=== PATIENT | male | born 2000 | race Hispanic/Latino ===

== ENCOUNTER 2021-07-03 21:41 | Emergency (ER) | payer SELFPAY ==
--- NOTE | 2021-07-04 00:46 | ER ---
Nurse's Notes [facility] Name: Christos Randolph Age: 21 yrs Sex: Male : 2000 Arrival Date: 07/03/2021 Time: 21:44 Bed 10 Private MD: Diagnosis: Dyspnea Presentation: 07/03 22:08 Chief complaint: Patient states: trouble breathing and covid exposure, denies fever, em got his 1st covid vaccine a few days ago. Coronavirus screen: Vaccine status: Patient reports receiving the 1st dose of the Covid vaccine. Ebola Screen: Patient negative for fever greater than or equal to 101.5 degrees Fahrenheit, and additional compatible Ebola Virus Disease symptoms Patient denies exposure to infectious person. Patient denies travel to an Ebola-affected area in the 21 days before illness onset. No symptoms or risks identified at this time. Initial Sepsis Screen: Does the patient meet any 2 criteria? No. Patient's initial sepsis screen is negative. Does the patient have a suspected source of infection? No. Patient's initial sepsis screen is negative. Risk Assessment: Do you want to hurt yourself or someone else? Patient reports no desire to harm self or others. Onset of symptoms was July 03, 2021. 22:08 Method Of Arrival: Ambulatory em 22:08 Acuity: HARRIS 4 em Historical: - Allergies: 22:09 No Known Allergies; em - PMHx: 22:09 None; em - PSHx: 22:09 None; em - Immunization history:: Client reports receiving the 1st dose of the Covid vaccine. - Social history:: Smoking status: Patient denies any tobacco usage or history of. Screenin:08 Abuse screen: Denies threats or abuse. Nutritional screening: No deficits noted. em Tuberculosis screening: No symptoms or risk factors identified. Fall Risk None identified. Assessment: 22:08 General: Appears in no apparent distress. comfortable, Behavior is calm, cooperative, em appropriate for age, Denies fever. Pain: Denies pain. Neuro: Level of Consciousness is awake, alert, obeys commands, Oriented to person, place, time, situation. Cardiovascular: Capillary refill < 3 seconds Patient's skin is warm and dry. Respiratory: Airway is patent Respiratory effort is even, unlabored, Respiratory pattern is regular, symmetrical. Derm: Skin is intact, is healthy with good turgor, Skin is pink, warm \T\ dry. Musculoskeletal: Capillary refill < 3 seconds, Range of motion: intact in all extremities. Vital Signs: 22:08 BP 129 / 89; Pulse 80; Resp 18; Temp 98.1; Pulse Ox 100% ; Weight 90.72 kg; Height 6 em ft. 1 in. (185.42 cm); 22:08 Body Mass Index 26.39 (90.72 kg, 185.42 cm) em ED Course: 21:44 Patient arrived in ED. cf2 22:08 Patient has correct armband on for positive identification. em 22:09 Triage completed. em 22: Arm band placed on. em 22:10 Sabina Strickland, ESTELITA is Primary Nurse. 22:11 Quinn Morrison PA is PHCP. [facility] 22:11 Jae Melendez MD is Attending Physician. [facility] 07/04 00:55 No provider procedures requiring assistance completed. Patient did not have IV access em during this emergency room visit. Administered Medications: No medications were administered Outcome: 00:45 Discharge ordered by MD. [facility] 00:55 Discharged to home ambulatory. em 00:55 Condition: stable 00:55 Discharge instructions given to patient, Instructed on discharge instructions, follow up and referral plans. Demonstrated understanding of instructions, follow-up care. 00:56 Patient left the ED. em Signatures: Quinn Morrison PA PA Tod Lynne RN RN Sabina Strickland, ESTELITA RN Aaliyah Ly cf2
--- NOTE | 2021-07-04 00:46 | EDPHYS ---
Physician Documentation [facility] Name: Christos Randolph Age: 21 yrs Sex: Male : 2000 Arrival Date: 07/03/2021 Time: 21:44 Bed 10 Private MD: ED Physician Jae Melendez HPI: 07/03 22:34 This 21 yrs old Male presents to ER via Ambulatory with complaints of covid jmm exposure. 22:34 The patient has shortness of breath at rest. Onset: The symptoms/episode began/occurred jmm gradually, 3 day(s) ago. Duration: The symptoms are intermittent. The patient's shortness of breath is aggravated by nothing, is alleviated by nothing. States he was exposed to someone with coronavirus. Historical: - Allergies: 22:09 No Known Allergies; em - PMHx: 22:09 None; em - PSHx: 22:09 None; em - Immunization history:: Client reports receiving the 1st dose of the Covid vaccine. - Social history:: Smoking status: Patient denies any tobacco usage or history of. ROS: 22:34 Constitutional: Negative for fever, chills, and weight loss, Cardiovascular: Negative jmm for chest pain, palpitations, and edema. 22:34 Respiratory: Positive for shortness of breath. 22:34 All other systems are negative. Exam: 22:34 Constitutional: This is a well developed, well nourished patient who is awake, alert, jmm and in no acute distress. Head/Face: atraumatic. Eyes: EOMI, no conjunctival erythema appreciated ENT: Moist Mucus Membranes Neck: Trachea midline, Supple Chest/axilla: Normal chest wall appearance and motion. Cardiovascular: Regular rate and rhythm. No edema appreciated Respiratory: Normal respirations, no respiratory distress appreciated Abdomen/GI: Non distended, soft Back: Normal ROM Skin: General appearance color normal MS/ Extremity: Moves all extremities, no obvious deformities appreciated, no edema noted to the lower extremities Neuro: Awake and alert, normal gait Psych: Behavior is normal, Mood is normal, Patient is cooperative and pleasant Vital Signs: 22:08 BP 129 / 89; Pulse 80; Resp 18; Temp 98.1; Pulse Ox 100% ; Weight 90.72 kg; Height 6 em ft. 1 in. (185.42 cm); 22:08 Body Mass Index 26.39 (90.72 kg, 185.42 cm) em MDM: 22:34 Patient medically screened. [facility] 07/04 00:44 Data reviewed: vital signs, nurses notes. Counseling: I had a detailed discussion with stefani the patient and/or guardian regarding: the historical points, exam findings, and any diagnostic results supporting the discharge/admit diagnosis, lab results, the need for outpatient follow up, to return to the emergency department if symptoms worsen or persist or if there are any questions or concerns that arise at home. ED course: Patient is alert and nontoxic in appearance in the ER. I discussed all labs and imaging studies with the patient. Patient will follow up with their primary care provider. Patient understood and agrees with plan of care.. 07/04 00:40 Order name: SARS-COV-2 RT PCR; Complete Time: 00:42 EDMS Administered Medications: No medications were administered Disposition: 02:09 Co-signature as Attending Physician, Jae Melendez MD I agree with the assessment and rn plan of care. Attestation: The patient's history, exam findings, diagnostics, and a summary of any interventions or procedures was reviewed in detail with Quinn WALTER. Disposition Summary: 07/04/21 00:45 Discharge Ordered Location: Home [facility] Condition: Stable [facility] Diagnosis - Dyspnea [facility] Followup: [facility] - With: Private Physician - When: 2 - 3 days - Reason: Recheck today's complaints, Continuance of care, Re-evaluation by your physician Discharge Instructions: - Discharge Summary Sheet jm - Shortness of Breath, Adult [facility] Forms: - Medication Reconciliation Form [facility] - Thank You Letter [facility] - Antibiotic Education m - Prescription Opioid Use [facility] - Work release form em Signatures: Dispatcher [employer] EDQuinn Cortez PA PA jmm Munoz, Edgar, ESTELITA RN Jae Eli MD MD rn telehealth: (The following items were deleted from the chart) 07/03 23:25 22:23 CORONAVIRUS+ ordered. EDTX EDMS
[2021-07-04 01:08] VITALS: BP 129/89; TEMP 98.1; O2SAT 100
== END 2021-07-04 00:56 | disposition home or self-care (01) ==
LOC: ER 21:41
DX: R06.00 Dyspnea, unspecified (principal); Z20.822 Contact with and (suspected) exposure to COVID-19
CPT/HCPCS: 99281; U0003

== ENCOUNTER 2021-12-04 23:17 | Emergency (ER) | payer SELFPAY ==
[2021-12-05 01:48] LABS: Urine Blood Negative (Negative); Urine Glucose Negative (Negative); Urine Protein Negative (Negative); Urine Specific Gravity 1.025 (1.005-1.030)
[2021-12-05 01:54] LABS: Protime INR 1.01
[2021-12-05 02:02] LABS: Absolute Lymphocytes (CBC) 1.3 K/uL (0.7-4.9); Hematocrit 41.9 % (39.6-49.0); MPV 8.9 fL (7.6-11.3); RBC Red Blood Cell Count 4.78 M/uL (4.33-5.43)
[2021-12-05] MEDS ORDERED: LORAZEPAM 1 MG TABLET ONE (02:05)
[2021-12-05 02:08] LABS: Barbiturates NEGATIVE (NEGATIVE); Benzodiazepines NEGATIVE (NEGATIVE); Cocaine NEGATIVE (NEGATIVE); METHAMPHETAM NEGATIVE (NEGATIVE); Methadone NEGATIVE (NEGATIVE); Opiates NEGATIVE (NEGATIVE); Phencyclidine NEGATIVE (NEGATIVE); THC Cannibis NEGATIVE (NEGATIVE)
[2021-12-05 02:11] LABS: ALT/SGPT 57 U/L (12-78); AST/SGOT 56 U/L (15-37); Albumin 3.8 g/dL (3.4-5.0); Alkaline Phosphatase 150 U/L (45-117); BUN Blood Urea Nitrogen 12 mg/dL (7-18); Bicarbonate 27 mmol/L (21-32); Bilirubin Direct 0.1 mg/dL (0-0.2); Bilirubin Total 0.3 mg/dL (0.2-1.0); Glucose Level 85 mg/dL (74-106); Potassium 4.1 mmol/L (3.5-5.1); Protein, Total 7.9 g/dL (6.4-8.2); Sodium Level 139 mmol/L (136-145)
--- NOTE | 2021-12-05 08:43 | EDPHYS ---
Physician Documentation [facility] Name: Christos Randolph Age: 21 yrs Sex: Male : 2000 Arrival Date: 12/04/2021 Time: 23:20 Bed 19 Private MD: ED Physician Nikko Garcia HPI: 12/04 23:50 This 21 yrs old Male presents to ER via Ambulatory with complaints of Suicidal cp Ideation - [employer] Brought PT in.. 23:50 The patient presents to the emergency department with depression, over a relationship. cp Past psychiatric history: Prior diagnosis: depression, Psychiatric medications include: Lexapro, the patient does not have a previous inpatient psychiatric history. Associated signs and symptoms: Pertinent positives; self cutting, Pertinent negatives: delusions, fever, hallucinations, homicidal ideation, suicide ideation. Historical: - Allergies: 23:38 No Known Allergies; sf1 - Home Meds: 23:38 None [Active]; sf1 - PMHx: 23:38 adhd; sf1 - PSHx: 23:38 None; sf1 - Immunization history:: Flu vaccine is not up to date. - Social history:: Smoking status: Patient denies any tobacco usage or history of. Patient/guardian denies using alcohol. ROS: 23:55 Constitutional: Negative for chills, fever, poor PO intake. cp 23:55 Eyes: Negative for injury, pain, redness, and discharge. cp 23:55 ENT: Negative for ear pain, sore throat, difficulty swallowing, difficulty handling secretions. 23:55 Cardiovascular: Negative for chest pain. 23:55 Respiratory: Negative for cough, shortness of breath, wheezing. 23:55 Abdomen/GI: Negative for abdominal pain, nausea, vomiting, and diarrhea. 23:55 Neuro: Negative for altered mental status, headache, weakness. 23:55 Psych: Positive for depression, Negative for auditory hallucinations, visual hallucinations, homicidal ideation, suicide gesture, suicidal ideation. 23:55 All other systems are negative. Exam: 23:58 Constitutional: The patient appears in no acute distress, alert, awake, non-toxic, well cp developed, well nourished. 23:58 Head/Face: Normocephalic, atraumatic. cp 23:58 Eyes: Periorbital structures: appear normal, Pupils: equal, round, and reactive to light and accomodation, Extraocular movements: intact throughout. 23:58 Chest/axilla: Inspection: normal. 23:58 Cardiovascular: Rate: normal, Rhythm: regular. 23:58 Respiratory: the patient does not display signs of respiratory distress, Respirations: normal, no use of accessory muscles, no retractions, labored breathing, is not present, Breath sounds: are clear throughout, no decreased breath sounds, no stridor, no wheezing. 23:58 Abdomen/GI: Exam negative for discomfort, distension, guarding, Inspection: abdomen appears normal. 23:58 Neuro: Orientation: to person, place \\T\\ time. Mentation: is normal, Motor: moves all fours, strength is normal, Sensation: is normal, Gait: is steady, at a normal pace, without difficulty. 12/05 02:01 ECG was reviewed by the Attending Physician. Vital Signs: 12/04 23:30 BP 152 / 94; Pulse 102; Resp 20; Temp 98.8; Pulse Ox 98% ; Weight 99.9 kg; Height 6 ft. sf1 0 in. (182.88 cm); Pain 0/10; 12/05 00:21 BP 128 / 99; Pulse 72; Resp 16; Temp 98.5; Pulse Ox 100% on R/A; Pain 0/10; jeffry 02:44 BP 128 / 88; Pulse 70; Resp 16; Pulse Ox 100% on R/A; jeffry 04:23 BP 115 / 82; Pulse 68; Resp 12; Pulse Ox 99% on R/A; Pain 0/10; jeffry 07:10 BP 120 / 76; Pulse 70; Resp 18; Temp 98.0(O); Pulse Ox 100% ; jh6 12/04 23:30 Body Mass Index 29.87 (99.90 kg, 182.88 cm) sf1 MDM: 12/04 23:43 Patient medically screened. 12/05 03:07 Data reviewed: vital signs, nurses notes, lab test result(s). 08:29 Differential diagnosis: drug withdrawal. acute psychotic break, depression. Data johny interpreted: traffic monitor specialist: rate is 68 beats/min, rhythm is regular, Pulse oximetry: on room air is 99 %. Test interpretation: by ED physician or midlevel provider: ECG. Counseling: I had a detailed discussion with the patient and/or guardian regarding: the historical points, exam findings, and any diagnostic results supporting the discharge/admit diagnosis, lab results, radiology results, the need for outpatient follow up, for definitive care, a family practitioner, a psychiatrist. 12/05 00:19 Order name: Acetaminophen; Complete Time: 03:06 12/05 00:19 Order name: Basic Metabolic Panel; Complete Time: 03:06 12/05 00:19 Order name: CBC with Diff; Complete Time: 03:06 12/05 03:07 Interpretation: Normal except: CLEO% 75.6. cp 12/05 00:19 Order name: ETOH Level; Complete Time: 03:06 12/05 03:07 Interpretation: Reviewed. 12/05 00:19 Order name: Hepatic Function; Complete Time: 03:06 12/05 00:19 Order name: PT-INR; Complete Time: 03:06 12/05 00:19 Order name: Ptt, Activated; Complete Time: 03:06 12/05 00:19 Order name: Salicylate; Complete Time: 03:06 12/05 00:19 Order name: Urine Drug Screen; Complete Time: 03:06 12/05 03:07 Interpretation: Reviewed. 12/05 00:19 Order name: EKG; Complete Time: 00:20 12/05 00:45 Order name: COVID-19 SARS RT PCR (Document "Date of Onset" if Symptomatic) 12/05 00:46 Order name: SARS-COV-2 RT PCR; Complete Time: 03:06 [facility] 12/05 01:48 Order name: Urine Dipstick-Ancillary; Complete Time: 03:06 [facility] 12/05 00:19 Order name: EKG - Nurse/Tech; Complete Time: 02:11 12/05 00:19 Order name: IV Saline Lock; Complete Time: 02:11 12/05 00:19 Order name: Labs collected and sent; Complete Time: 02:11 12/05 00:19 Order name: Suicide Precautions; Complete Time: 02:11 12/05 00:19 Order name: Suicide Screening ([place]); Complete Time: 02:11 12/05 00:19 Order name: Urine Dipstick-Ancillary (obtain specimen); Complete Time: 02:11 12/05 08:23 Order name: Diet Regular; Complete Time: 08:24 5 EC:01 Rate is 80 beats/min. Rhythm is regular. FL interval is normal. QRS interval is normal. cp QT interval is normal. T waves are Inverted in lead aVR. Interpreted by me. Reviewed by me. Administered Medications: 02:08 Drug: Ativan (LORazepam) 1 mg Route: PO; jeffry 02:11 Follow up: Response: No adverse reaction jeffry Disposition: 08:14 Co-signature as Attending Physician, Nikko Garcia MD I agree with the assessment and johny plan of care. Disposition Summary: 12/05/21 08:43 Discharge Ordered Location: Home johny Problem: new johny Symptoms: have improved johny Condition: Stable johny Diagnosis - Suicidal ideations johny - Adjustment disorder with depressed mood johny Followup: johny - With: Private Physician - When: 2 - 3 days - Reason: Recheck today's complaints, Continuance of care, Re-evaluation by your physician Followup: johny - With: Harrison Jenkins MD - When: 2 - 3 days - Reason: Recheck today's complaints, Re-evaluation by your physician Discharge Instructions: - Discharge Summary Sheet johny - Adjustment Disorder, Adult johny - Suicidal Feelings: How to Help Yourself johny - Helping Someone Who is Suicidal johny - Stress, Adult johny Forms: - Medication Reconciliation Form johny - Thank You Letter johny - Antibiotic Education johny - Prescription Opioid Use johny Signatures: Dispatcher [employer] Nikko Elliott MD MD cha Page, Corey, PA PA cp O'Farrell, Brenda, RN Kymberly Pruitt RN RN sf1
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
[2021-12-05 11:51] VITALS: BP 120/76; TEMP 98; O2SAT 100
== END 2021-12-05 11:37 | disposition home or self-care (01) ==
LOC: ER 23:17
DX: F43.21 Adjustment disorder with depressed mood (principal); Z20.822 Contact with and (suspected) exposure to COVID-19
CPT/HCPCS: 36415; 80048; 80076; 80307; 80320; 80329; 81003; 85025; 85610; 85730; 93005; 99284; U0003

== ENCOUNTER 2022-02-26 10:52 | Emergency (ER) | payer SELFPAY ==
[2022-02-26] MEDS ORDERED: MAGNES/ALUMIN/SIMET 30ML UCUP ONE (11:22)
[2022-02-26] MEDS ORDERED: LIDOCAINE VISCOUS 2% SOLN 15 ML UDC ONE (11:22)
[2022-02-26 11:31] LABS: Hematocrit 42.4 % (39.6-49.0); MPV 8.6 fL (7.6-11.3); RBC Red Blood Cell Count 4.87 M/uL (4.33-5.43)
[2022-02-26 11:42] LABS: Protime INR 0.95
--- NOTE | 2022-02-26 11:45 | RAD REPORT ---
EXAM DESCRIPTION: RAD - Chest Single View - 02/26/2022 11:37 am CLINICAL HISTORY: CHEST PAIN COMPARISON: None TECHNIQUE: AP portable chest image was obtained 02/26/2022 11:37 am . FINDINGS: Lungs are clear. Heart and vasculature are normal. No measurable pleural effusion and no p neumothorax. No acute bony abnormality seen. No acute aortic findings suspected. IMPRESSION: No acute cardiopulmonary process.
[2022-02-26 12:54] LABS: ALT/SGPT 76 U/L (12-78); AST/SGOT 44 U/L (15-37); Albumin 3.7 g/dL (3.4-5.0); Alkaline Phosphatase 166 U/L (45-117); BUN Blood Urea Nitrogen 10 mg/dL (7-18); Bicarbonate 27 mmol/L (21-32); Bilirubin Total 0.4 mg/dL (0.2-1.0); Glucose Level 103 mg/dL (74-106); Magnesium 1.9 mg/dL (1.8-2.4); Potassium 4.3 mmol/L (3.5-5.1); Sodium Level 138 mmol/L (136-145)
[2022-02-26 12:56] LABS: Bilirubin Direct < 0.1 mg/dL (0-0.2)
--- NOTE | 2022-02-26 13:09 | RAD REPORT ---
EXAM DESCRIPTION: US - Extrem Venous W Compress Guido - 02/26/2022 12:58 pm CLINICAL HISTORY: PAIN COMPARISON: None. TECHNIQUE: Real-time sonographic evaluation of the bilateral lower extremity common femoral, superfi cial femoral, popliteal and posterior tibial veins was performed. FINDINGS: Normal compressibility, flow augmentation, phasic flow and spontaneous flow are identified in the left and right lower extremity common femoral, superficial femoral, popliteal and posterior t ibial veins. No intraluminal filling defects seen. IMPRESSION: No DVT in either lower extremity.
[2022-02-26 13:14] LABS: NT PRO-BNP 8 pg/mL (<125)
--- NOTE | 2022-02-26 13:57 | RAD REPORT ---
EXAM DESCRIPTION: CT - Chest For Pe Angio - 02/26/2022 1:28 pm CLINICAL HISTORY: Chest pain COMPARISON: None. TECHNIQUE: Dynamically enhanced axial 3 mm thick images of the chest were obtained during administra tion of <100> mL Isovue 370 IV contrast. Coronal and oblique reconstruction images were generated and reviewed. Exam utilizes a protocol for optimal evaluation of pulmonary arterial tree. Maximum intensity projections 3D imaging was utilized All CT scans are performed using dose optimization technique as appropriate and may include automated exposure control or mA/KV adjustment according to patient size. FINDINGS: A pulmonary embolus is not seen. A thoracic aortic aneurysm is not noted. A pleural effusion is not seen. A pericardial effusion is not seen. A lung consolidation is not present. IMPRESSION: Negative for a pulmonary embolism.
--- NOTE | 2022-02-26 14:09 | ER ---
Nurse's Notes [facility] Name: Christos Randolph Age: 22 yrs Sex: Male : 2000 Arrival Date: 02/26/2022 Time: 10:54 Bed 16 Private MD: Diagnosis: Chest pain, unspecified Presentation: 02/26 11:03 Chief complaint: Patient states: feels like squeezing burning pain in midsternal area , iw feels like acid reflux, worse when sleeping, X 1 week. Coronavirus screen: At this time, the client does not indicate any symptoms associated with coronavirus-19. Ebola Screen: Patient negative for fever greater than or equal to 101.5 degrees Fahrenheit, and additional compatible Ebola Virus Disease symptoms Patient denies exposure to infectious person. Patient denies travel to an Ebola-affected area in the 21 days before illness onset. No symptoms or risks identified at this time. Initial Sepsis Screen: Does the patient meet any 2 criteria? No. Patient's initial sepsis screen is negative. Does the patient have a suspected source of infection? No. Patient's initial sepsis screen is negative. Risk Assessment: Do you want to hurt yourself or someone else? Patient reports no desire to harm self or others. Onset of symptoms was February 19, 2022. 11:03 Method Of Arrival: Ambulatory iw 11:03 Acuity: HARRIS 3 iw Historical: - Allergies: 11:04 No Known Allergies; iw - Home Meds: 11:04 None [Active]; iw - PMHx: 11:04 None; iw - PSHx: 11:04 None; iw - Immunization history:: Adult Immunizations up to date. - Social history:: Smoking status: Patient denies any tobacco usage or history of. Screenin:27 Abuse screen: Denies threats or abuse. Denies injuries from another. Nutritional ab2 screening: No deficits noted. Tuberculosis screening: No symptoms or risk factors identified. Fall Risk None identified. Assessment: 11:26 General: Appears in no apparent distress. comfortable, Behavior is calm, cooperative, ab2 appropriate for age. Pain: Complains of pain in chest Pain radiates to neck Pain began about a week ago per patient. Neuro: Level of Consciousness is awake, alert, obeys commands, Oriented to person, place, time, situation, Appropriate for age [employer] are equal bilaterally Moves all extremities. Gait is steady, Speech is normal. Cardiovascular: Reports chest pain, Denies shortness of breath, Heart tones S1 S2 present Patient's skin is warm and dry. Respiratory: Airway is patent Respiratory effort is even, unlabored, Respiratory pattern is regular, symmetrical. GI: No deficits noted. No signs and/or symptoms were reported involving the gastrointestinal system. Abdomen is round non-distended, Bowel sounds present X 4 quads. : No deficits noted. No signs and/or symptoms were reported regarding the genitourinary system. 13:39 Reassessment: Patient appears in no apparent distress at this time. Pt ambulated to ab2 bathroom with no assistance. pt given warm blanket per request. Awaiting results for disposition. Pt denies any further needs at this time. Vital Signs: 11:03 BP 135 / 71; Pulse 96; Resp 16; Temp 98.4; Pulse Ox 99% on R/A; Height 6 ft. 1 in. iw (185.42 cm); 11:48 BP 113 / 92; Pulse 88; Resp 17; Pulse Ox 99% on R/A; ab2 13:39 BP 124 / 82; Pulse 77; Resp 18; Pulse Ox 100% on R/A; ab2 14:23 BP 131 / 77; Pulse 73; Resp 17; Pulse Ox 99% on R/A; ab2 ED Course: 10:54 Patient arrived in ED. ds1 10:54 Quinn Morrison PA is PHCP. [facility] 10:54 Nikko Garcia MD is Attending Physician. [facility] 11:04 Triage completed. iw 11:05 Arm band placed on. iw 11:17 Christoph Pascual is Primary Nurse. ab2 11:27 No provider procedures requiring assistance completed. Patient maintains SpO2 ab2 saturation greater than 95% on room air. 11:28 Patient has correct armband on for positive identification. Bed in low position. Call ab2 light in reach. Side rails up X2. caustic strength inspector on. Pulse ox on. NIBP on. 11:28 Basic Metabolic Panel Sent. ab2 11:28 CBC with Diff Sent. ab2 11:28 D-Dimer Sent. ab2 11:28 LFT's Sent. ab2 11:28 Magnesium Sent. ab2 11:28 NT PRO-BNP Sent. ab2 11:28 PT-INR Sent. ab2 11:28 Troponin HS Sent. ab2 11:38 XRAY Chest (1 view) In Process Unspecified. EDMS 11:38 Inserted saline lock: 20 gauge in left antecubital area, using aseptic technique. Blood jw7 collected. 11:38 EKG done, by ED staff, reviewed by Quinn WALTER. jw7 13:00 US Extremity Venous W Compression Guido In Process Unspecified. EDMS 13:29 CT Chest For PE Angio In Process Unspecified. EDMS 14:23 IV discontinued, intact, bleeding controlled, No redness/swelling at site. Pressure ab2 dressing applied. Administered Medications: 11:22 Drug: GI Cocktail without - (Maalox Suspension 30 ml, Lidocaine Liquid 2 % 15 ab2 ml) Route: PO; Outcome: 14:08 Discharge ordered by . jmm 14:23 Discharged to home ambulatory. ab2 14:23 Condition: good 14:23 Discharge instructions given to patient, Instructed on discharge instructions, follow up and referral plans. medication usage, Demonstrated understanding of instructions, follow-up care, medications, Prescriptions given X 1. 14:23 Patient left the ED. ab2 Signatures: Dispatcher [employer] EDMS Quinn Morrison PA PA jmm Sanford, Demi ds1 Janell Michael, RN RN Christoph Catherine ab2 Radha Higgins jw7 Corrections: (The following items were deleted from the chart) 11:11 11:03 Pulse 96bpm; Resp 16bpm; Pulse Ox 99% RA; Temp 98.4F; Height 6 ft. 1 in.; iw huma
--- NOTE | 2022-02-26 14:09 | EDPHYS ---
Physician Documentation [facility] Name: Christos Randolph Age: 22 yrs Sex: Male : 2000 Arrival Date: 02/26/2022 Time: 10:54 Bed 16 Private MD: BOY Physician Nikko Garcia HPI: 02/26 11:09 This 22 yrs old Male presents to ER via Ambulatory with complaints of Chest jmm Pain. 11:09 The patient or guardian reports chest pain that is located primarily in the substernal jmm area. The pain does not radiate. Associated signs and symptoms: Pertinent positives: shortness of breath. The chest pain is described as aching, causing indigestion, sharp. Duration: The patient or guardian reports a single episode, that is still ongoing. Modifying factors: The symptoms are alleviated by nothing. the symptoms are aggravated by nothing. The patient has not experienced similar symptoms in the past. Historical: - Allergies: 11:04 No Known Allergies; iw - Home Meds: 11:04 None [Active]; iw - PMHx: 11:04 None; iw - PSHx: 11:04 None; iw - Immunization history:: Adult Immunizations up to date. - Social history:: Smoking status: Patient denies any tobacco usage or history of. ROS: 11:09 Constitutional: Negative for fever, chills, and weight loss. jmm 11:09 Cardiovascular: Positive for chest pain. 11:09 Respiratory: Positive for shortness of breath. 11:09 All other systems are negative. Exam: 11:09 Constitutional: This is a well developed, well nourished patient who is awake, alert, jmm and in no acute distress. Head/Face: atraumatic. Eyes: EOMI, no conjunctival erythema appreciated ENT: Moist Mucus Membranes Neck: Trachea midline, Supple Chest/axilla: Normal chest wall appearance and motion. Cardiovascular: Regular rate and rhythm. No edema appreciated Respiratory: Normal respirations, no respiratory distress appreciated Abdomen/GI: Non distended, soft Back: Normal ROM Skin: General appearance color normal MS/ Extremity: Moves all extremities, no obvious deformities appreciated, no edema noted to the lower extremities Neuro: Awake and alert Psych: Behavior is normal, Mood is normal, Patient is cooperative and pleasant Vital Signs: 11:03 BP 135 / 71; Pulse 96; Resp 16; Temp 98.4; Pulse Ox 99% on R/A; Height 6 ft. 1 in. iw (185.42 cm); 11:48 BP 113 / 92; Pulse 88; Resp 17; Pulse Ox 99% on R/A; ab2 13:39 BP 124 / 82; Pulse 77; Resp 18; Pulse Ox 100% on R/A; ab2 14:23 BP 131 / 77; Pulse 73; Resp 17; Pulse Ox 99% on R/A; ab2 MDM: 11:10 Patient medically screened. johny 14:06 Data reviewed: vital signs, nurses notes. Counseling: I had a detailed discussion with stefani the patient and/or guardian regarding: the historical points, exam findings, and any diagnostic results supporting the discharge/admit diagnosis, lab results, radiology results, the need for outpatient follow up, to return to the emergency department if symptoms worsen or persist or if there are any questions or concerns that arise at home. ED course: Patient is alert and non toxic in appearance in the ED. Imaging findings unremarkable, troponin wnl. Patient advised to follow up with pcp and otherwise given strict return precautions. patient understood and agrees with the plan of care. . 02/26 11:09 Order name: Basic Metabolic Panel; Complete Time: 13:15 [facility] 02/26 11:09 Order name: CBC with Diff; Complete Time: 11:41 [facility] 02/26 11:09 Order name: D-Dimer; Complete Time: 11:47 [facility] 02/26 11:09 Order name: LFT's; Complete Time: 13:15 [facility] 02/26 11:09 Order name: Magnesium; Complete Time: 13:15 [facility] 02/26 11:09 Order name: NT PRO-BNP; Complete Time: 13:15 [facility] 02/26 11:09 Order name: PT-INR; Complete Time: 11:47 [facility] 02/26 11:09 Order name: Troponin HS; Complete Time: 13:15 [facility] 02/26 11:09 Order name: XRAY Chest (1 view); Complete Time: 11:47 [facility] 02/26 11:09 Order name: EKG; Complete Time: 11:09 [facility] 02/26 11:09 Order name: Cardiac monitoring; Complete Time: 11:28 [facility] 02/26 11:45 Order name: US Extremity Venous W Compression Guido; Complete Time: 13:15 [facility] 02/26 11:45 Order name: CT Chest For PE Angio; Complete Time: 14:00 [facility] 02/26 11:09 Order name: EKG - Nurse/Tech; Complete Time: : [facility] 02/26 11:09 Order name: IV Saline Lock; Complete Time: : [facility] 02/26 11:09 Order name: Labs collected and sent; Complete Time: [facility] 02/26 11:09 Order name: O2 Per Protocol; Complete Time: [facility] 02/26 11:09 Order name: O2 Sat Monitoring; Complete Time: : [facility] Administered Medications: : Drug: GI Cocktail without - (Maalox Suspension 30 ml, Lidocaine Liquid 2 % 15 ab2 ml) Route: PO; Disposition Summary: 02/26/22 14:08 Discharge Ordered Location: Home [facility] Condition: Stable [facility] Diagnosis - Chest pain, unspecified [facility] Followup: [facility] - With: Private Physician - When: 2 - 3 days - Reason: Recheck today's complaints, Continuance of care, Re-evaluation by your physician Discharge Instructions: - Discharge Summary Sheet [facility] - Nonspecific Chest Pain, Adult [facility] Forms: - Medication Reconciliation Form [facility] - Thank You Letter [facility] - Antibiotic Education [facility] - Prescription Opioid Use [facility] Prescriptions: - Pepcid 20 mg Oral Tablet - take 1 tablet by ORAL route every 12 hours for 10 days; 20 tablet; Refills: 0, [facility] Product Selection Permitted Signatures: Dispatcher [employer] Nikko Elliott MD MD cha Mickail, Joel, PA PA jmm Williams, Irene, RN RN Christoph Catherine ab2
[2022-02-26 14:53] VITALS: TEMP 98.4
[2022-02-26 14:56] VITALS: BP 131/77; O2SAT 99
== END 2022-02-26 14:23 | disposition home or self-care (01) ==
LOC: ER 10:52
DX: R07.9 Chest pain, unspecified (principal)
CPT/HCPCS: 36415; 71045; 71275; 80048; 80076; 83735; 83880; 84484; 85025; 85379; 85610; 93005; 93970; 99285; Q9967